=== PATIENT | male | born 1950 | race Caucasian/White ===

== ENCOUNTER → 2022-01-17 10:36 | Outpatient (BNVA) | payer MEDICARE, BC, OTHER, SELFPAY | PROVIDERS: PCP Family Medicine; Referring Provider Family Medicine; Visit Provider Specialist | DX: G43.711 Chronic migraine without aura, intractable, with status migrainosus (principal); G93.89 Other specified disorders of brain; G31.84 Mild cognitive impairment of uncertain or unknown etiology | CPT/HCPCS: 82550; 82607; 82746; 85651; 86140; 99204; 99205 ==

== ENCOUNTER 2022-02-13 13:04 | Outpatient (CLI) | payer MEDICARE, BC, OTHER, SELFPAY ==
--- NOTE | 2022-02-13 13:45 | MR_ITS ---
WS: [id number] MRI HEAD WITH CONTRAST TECHNIQUE: Sagittal T1, T2 axial, T2 axial FLAIR, axial susceptibility weighted imaging, axial diffus ion weighted images, and coronal T2 images were obtained. Pre and post-T1 axial and post T1 coronal i mages. ADC and FSPGR images. CLINICAL INFORMATION: G93.89 - Other specified disorders of brain COMPARISON: None. FINDINGS: No evidence restricted diffusion to suggest acute ischemia. Ventricular system and basal cisterns are patent. Minimal small vessel changes. No significant parenchymal volume loss. Normal posterior fossa . Normal vascular flow voids at the skull base. No extra-axial fluid collections. No evidence of mass or mass effect. Paranasal sinuses and mastoid air cells well aerated. Normal posterior nasopharynx. No hemosiderin an d on the susceptibly weighted images. Normal optic chiasm and pituitary infundibulum. Heterogeneous e nhancing sellar and suprasellar pituitary tissue contacting the infundibulum. No impingement on the o ptic chiasm. Enhancing tissue within the sella. This is difficult to separate from normal pituitary t issue. Recommend correlation with pituitary function studies. No abnormal intracranial enhancement. No abnormal enhancing intracranial lesions. Normal visualized d ural venous sinuses. MR/MR head wo/w con [id number] IMPRESSION: 1. No evidence of restricted diffusion to suggest acute ischemia. 2. Minimal small vessel changes. No significant parenchymal volume loss. 3. Heterogeneous enhancing sellar and suprasellar pituitary tissue measuring 9 x 9 mm transverse by craniocaudal contacting the midline infundibulum. Finding s suspicious for pituitary adenoma in a patient this age. Recommend correlation with pituitary function studies. Recommend short-term 3 month interval follow- up MRI without and with gadolinium enhancement with pituitary protocol. 4. No other remarkable findings.
[2022-02-13] MEDS: gadobenate dimeglumine 20 mL vial IV (14:36)
== END 2022-02-13 13:05 | disposition home or self-care (01) ==
LOC: RAD 13:05
PROVIDERS: PCP Family Medicine; Visit Provider Specialist
DX: G93.89 Other specified disorders of brain (principal); R51.9 Headache, unspecified
CPT/HCPCS: 70553

== ENCOUNTER 2022-03-08 06:00 | Outpatient (CLI) | payer MEDICARE, BC, OTHER, SELFPAY | END 2022-03-08 06:01 | disposition home or self-care (01) | LOC: LAB 05-07 12:40 | PROVIDERS: PCP Family Medicine; Visit Provider Specialist | DX: R20.0 Anesthesia of skin (principal); R20.2 Paresthesia of skin | CPT/HCPCS: 83003; 84146; 84443 ==

== ENCOUNTER → 2022-03-08 10:54 | Outpatient (BNVA) | payer MEDICARE, BC, OTHER, SELFPAY | PROVIDERS: PCP Family Medicine; Visit Provider Specialist | DX: G43.711 Chronic migraine without aura, intractable, with status migrainosus (principal); G31.84 Mild cognitive impairment of uncertain or unknown etiology; E23.6 Other disorders of pituitary gland; E03.9 Hypothyroidism, unspecified; E53.8 Deficiency of other specified B group vitamins | CPT/HCPCS: 99214 ==

== ENCOUNTER 2022-06-20 14:08 | Outpatient (CLI) | payer MEDICARE, BC, OTHER, SELFPAY ==
--- NOTE | 2022-06-20 14:30 | MR_ITS ---
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 High-resolution coronal and sagittal imaging performed through the pituitary region with and without intravenous gadolinium. No evidence for restricted diffusion to suggest ischemia. Ventricular system and the basal cisterns a re patent. Minimal small vessel ischemic change. No atrophy. Normal posterior fossa. Normal flow void s. No extra-axial fluid collection or mass. No enhancing intraparenchymal mass. Again noted is the heterogeneously enhancing sellar to suprasellar pituitary mass. There is contact a nd slight elevation of the infundibulum. No encroachment upon the optic chiasm. Mass measures 8.7 mm in superior inferior diameter x 12 mm anterior posterior x 10 mm transversely. No significant interv al change. Very similar in appearance to the prior study. Enhancement within the pituitary lesion is decreased as compared to the prior study which is probably related to timing of injection. No extensi on beyond the cavernous sinuses. Normal enhancement. Normal visualized dural venous sinuses. Paranasal sinuses and mastoid air cells a re well aerated. MR/MR pituitary wo/w con* [id number] IMPRESSION: 1. No change in the sellar/suprasellar pituitary lesion that was described on 02/13/2022. Slightly less enhancement within the pituitary lesion is probably due to timing of imaging after contrast injection. Suspicious for pituitary adenom a which contacts the infundibulum. Due to the mild suprasellar extension and re lative short-term follow-up considered additional 6 month MRI with and without gadolinium pituitary protocol. 2. No acute infarcts. 3. Mild small vessel ischemic disease.
[2022-06-20] MEDS: gadobenate dimeglumine 20 mL vial IV (15:10)
== END 2022-06-20 14:09 | disposition home or self-care (01) ==
LOC: RAD 14:08
PROVIDERS: PCP Family Medicine; Visit Provider Specialist
DX: D35.2 Benign neoplasm of pituitary gland (principal); I67.82 Cerebral ischemia
CPT/HCPCS: 70553; 83003; 84146; 84443; A9577

== ENCOUNTER → 2022-07-16 10:14 | Outpatient (BNVA) | payer MEDICARE, BC, OTHER, SELFPAY | PROVIDERS: PCP Family Medicine; Visit Provider Specialist | DX: R51.9 Headache, unspecified (principal); E23.6 Other disorders of pituitary gland; E53.8 Deficiency of other specified B group vitamins; R41.89 Other symptoms and signs involving cognitive functions and awareness | CPT/HCPCS: 99214 ==

== ENCOUNTER 2022-12-06 09:19 | Outpatient (CLI) | payer MEDICARE, BC, OTHER, SELFPAY ==
--- NOTE | 2022-12-06 11:00 | MR_ITS ---
WS: [id number] MRI HEAD WITHOUT AND WITH GADOLINIUM ENHANCEMENT WITH PITUITARY PROTOCOL. TECHNIQUE: Sagittal T1, T2 axial, T2 axial FLAIR, axial susceptibility weighted imaging, axial diffus ion weighted images, and coronal T2 images were obtained. Pre and post-T1 axial and post T1 coronal i mages. ADC and FSPGR images. High-resolution pre and post gadolinium T1 imaging was obtained. High-re solution coronal T2 and sagittal T1 precontrast imaging was obtained with attention to the pituitary. CLINICAL INFORMATION: E23.6 - Other disorders of pituitary gland COMPARISON: June 20, 2020 2. February 13, 2022 FINDINGS: Again seen is the intrasellar homogeneously enhancing lesion with suprasellar extension. T his measures 9 x 8 mm craniocaudal by transverse. This is stable in appearance compared to the prior study. Slight impingement on the infundibulum. Normal optic chiasm. Normal cavernous sinuses and Meck el's cave. Findings most compatible with pituitary adenoma. Temporal lobes and hippocampal formations are normal in appearance. No other suspicious findings. No restricted diffusion to suggest acute ischemia. Ventricular system and basal cisterns are patent. Minimal small vessel changes. No significant parenchymal volume loss. Normal posterior fossa. Normal vascular flow voids at the skull base. No extra-axial fluid collections. No evidence of mass or mass effect. Normal posterior nasopharynx. Normal parapharyngeal fat. Paranasal sinuses and mastoid air ce lls well aerated. No hemosiderin on susceptibly weighted images. MR/MR pituitary wo/w con* [id number] IMPRESSION: 1. No significant interval changes in the homogeneously enhancing 9 mm sellar and suprasellar mass with contact of the infundibulum. Findings most compatible with pituitary adenoma. Recommend 6-12 month follow-up MRI without and with ga dolinium enhancement with pituitary protocol. 2. Normal optic chiasm. Normal cavernous sinuses. 3. No other significant changes compared to previous. 4. No restricted diffusion to suggest acute ischemia. 5. Mild small vessel changes. No significant parenchymal volume loss. 6. No other suspicious findings.
[2022-12-06] MEDS: gadobenate dimeglumine 20 mL vial IV (11:55)
== END 2022-12-06 09:20 | disposition home or self-care (01) ==
PROVIDERS: PCP Family Medicine; Visit Provider Specialist
DX: E23.6 Other disorders of pituitary gland (principal)
CPT/HCPCS: 70553; A9577

== ENCOUNTER → 2023-01-18 11:43 | Outpatient (BNVA) | payer MEDICARE, BC, OTHER, SELFPAY | PROVIDERS: PCP Family Medicine; Visit Provider Specialist | DX: G43.711 Chronic migraine without aura, intractable, with status migrainosus (principal); G31.84 Mild cognitive impairment of uncertain or unknown etiology; D35.2 Benign neoplasm of pituitary gland | CPT/HCPCS: 0346U; 36415; 96116; 99215 ==

== ENCOUNTER → 2023-04-29 11:52 | Outpatient (BNVA) | payer MEDICARE, BC, OTHER, SELFPAY | PROVIDERS: PCP Family Medicine; Visit Provider Specialist | DX: G43.711 Chronic migraine without aura, intractable, with status migrainosus (principal); G31.84 Mild cognitive impairment of uncertain or unknown etiology; E23.6 Other disorders of pituitary gland | CPT/HCPCS: 99214 ==

== ENCOUNTER → 2023-10-09 11:03 | Outpatient (BNVA) | payer MEDICARE, BC, OTHER, SELFPAY | PROVIDERS: PCP Family Medicine; Visit Provider Specialist | DX: D35.2 Benign neoplasm of pituitary gland (principal); G43.711 Chronic migraine without aura, intractable, with status migrainosus; G31.84 Mild cognitive impairment of uncertain or unknown etiology | CPT/HCPCS: 99214 ==

== ENCOUNTER 2023-11-21 10:47 | Outpatient (CLI) | payer MEDICARE, BC, OTHER, SELFPAY ==
--- NOTE | 2023-11-21 11:45 | MR_ITS ---
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 High-resolution coronal and sagittal imaging performed through the pituitary region with and without intravenous gadolinium. Reidentified is a intrasellar homogeneously enhancing mass centered in the pituitary gland with supra sellar extension. Mass measures 7 x 6 x 6 mm and appears just slightly smaller in size as compared t o 12/06/2022. The enhancement is similar to the prior examination. No hemorrhage. There is continued co ntact on the infundibulum but not the optic chiasm. Normal cavernous sinuses and Meckel's cave. No ad ditional area of abnormal enhancement or mass. Normal diffusion imaging. Mild atrophy and mild small vessel ischemic disease. No prior infarct. No i nferior displacement of the cerebellar tonsils. Hippocampal formations and temporal lobes are normal. No atrophy. Ventricles are normal size. No inferior displacement of the cerebellar tonsils. Normal sinuses and mastoid air cells. MR/MR pituitary wo/w con* [id number] IMPRESSION: 1. Homogeneous enhancing intrasellar mass has slightly decreased in size since 12/06/2022 now measuring 7 x 6 x 6 mm. 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 2. No additional mass or recent infarct. 3. Mild atrophy and minimal small vessel ischemic disease.
[2023-11-21] MEDS: gadobenate dimeglumine 20 mL vial IV (12:00)
== END 2023-11-21 10:48 | disposition home or self-care (01) ==
LOC: RAD 10:47
PROVIDERS: PCP Family Medicine; Visit Provider Specialist
DX: D35.2 Benign neoplasm of pituitary gland (principal)
CPT/HCPCS: 70553; A9577

== ENCOUNTER → 2024-09-24 10:11 | Outpatient (BNVA) | payer MEDICARE, BC, OTHER, SELFPAY | PROVIDERS: PCP Family Medicine; Visit Provider Specialist | DX: D35.2 Benign neoplasm of pituitary gland (principal); R29.90 Unspecified symptoms and signs involving the nervous system; G43.711 Chronic migraine without aura, intractable, with status migrainosus; G31.84 Mild cognitive impairment of uncertain or unknown etiology | CPT/HCPCS: 99214 ==